=== PATIENT | female | born 1955 | race Caucasian/White ===

== ENCOUNTER → 2017-03-26 | Outpatient (CLI) | payer OTHER ==
[~2017-03-26] MED LIST: ASCO1CAP3 PO; ASPEC81 PO; AUGMENTIN PO; LEVO88TA22 PO; LORA-741 PO; MISCCAP80 PO; SENNTAB23 PO; SIMV20TA5 PO
[2017-03-26 16:46] LABS: BASO % 0.2 %; BASO ABS # 0.01 K/uL (0-0.2); COMPLETE YES; EOS % 3.2 %; HEMATOCRIT 39.8 % (37-47); IG% 0.2 %; LYMPH % 33.9 %; LYMPH ABS # 1.71 K/uL (1.2-3.4); MEAN CELL VOLUME 94.3 fL (80-100); MEAN CORPUSCULAR HEMOGLOBIN 30.3 pg (25-34); MEAN CORPUSCULAR HGB CONC 32.2 g/dl (32-36); MEAN PLATELET VOLUME 9.8 fL (7.4-10.4); MONO % 11.3 %; NEUT % 51.2 %; PLATELET COUNT 246 K/uL (130-400); RED BLOOD COUNT 4.22 M/uL (4.2-5.4); WHITE BLOOD COUNT 5.04 K/uL (4.8-10.8)
[2017-03-26 17:10] LABS: ALT/SGPT 40 U/L (12-78); BLOOD UREA NITROGEN 16 mg/dl (7-18); BUN/CREATININE RATIO 27.1 (10-20); CALCIUM 8.8 mg/dl (8.5-10.1); CARBON DIOXIDE 29 mmol/L (21-32); CHLORIDE 109 mmol/L (98-107); CHOLESTEROL 168 mg/dl (0-200); CREATININE 0.59 mg/dl (0.60-1.20); GLUCOSE 89 mg/dl (70-99); POTASSIUM 4.4 mmol/L (3.5-5.1); SODIUM 142 mmol/L (136-145)
[2017-03-26 17:19] LABS: ALB/GLOB RATIO 1.1 (0.9-2); ALKALINE PHOSPHATASE 89 U/L (45-117); AST/SGOT 21 U/L (15-37); CHOLESTEROL/HDL RATIO 2.8; HDL CHOLESTEROL 61 mg/dl; LDL CHOLESTEROL CALCULATED 89 mg/dl; THYROID STIMULATING HORMONE 0.722 uIu/ml (0.300-4.500); TRIGLYCERIDES 90 mg/dl (0-150); VERY LOW DENSITY LIPOPROT CALC 18 mg/dl
== END | disposition home or self-care (01) ==
LOC: C.LABPBG 11:56
PROVIDERS: ATTEND Neuromusculoskeletal Medicine & OMM
DX: Z00.00 Encounter for general adult medical examination without abnormal findings (principal)

== ENCOUNTER → 2017-07-02 | Outpatient (CLI) | payer OTHER | END | disposition home or self-care (01) | LOC: C.PAPS 15:08 | PROVIDERS: ATTEND Obstetrics & Gynecology | DX: Z12.4 Encounter for screening for malignant neoplasm of cervix (principal) ==

== ENCOUNTER 2017-11-14 08:10 | Emergency (ER) | payer OTHER ==
[~2017-11-14] VITALS: Ht 157.5 cm; Wt 71.0 kg
[2017-11-14 08:21] VITALS: TEMP 36.4; O2SAT 97; Ht 157.5 cm; Wt 71.0 kg
[2017-11-14 09:06] LABS: BASO % 0.3 %; BASO ABS # 0.02 K/uL (0-0.2); EOS % 1.7 %; HEMATOCRIT 40.2 % (37-47); HEMOGLOBIN 13.2 g/dL (12.0-16.0); IG# 0.01 K/uL (0.00-0.02); LYMPH % 34.7 %; LYMPH ABS # 2.06 K/uL (1.2-3.4); MEAN CELL VOLUME 93.9 fL (80-100); MEAN CORPUSCULAR HEMOGLOBIN 30.8 pg (25-34); MEAN CORPUSCULAR HGB CONC 32.8 g/dl (32-36); MEAN PLATELET VOLUME 9.5 fL (7.4-10.4); MONO ABS # 0.71 K/uL (0.11-0.59); NEUT % 51.1 %; NEUT ABS # 3.04 K/uL (1.4-6.5); PLATELET COUNT 203 K/uL (130-400); RED CELL DISTRIBUTION WIDTH CV 12.5 % (11.5-14.5); RED CELL DISTRIBUTION WIDTH SD 42.6 fL (36.4-46.3); WHITE BLOOD COUNT 5.94 K/uL (4.8-10.8)
[2017-11-14 09:11] LABS: PTT PATIENT 26.1 SECONDS (21.0-31.0)
[2017-11-14 09:14] LABS: ALBUMIN 3.8 gm/dl (3.4-5.0); ALT/SGPT 26 U/L (12-78); AST/SGOT 18 U/L (15-37); BLOOD UREA NITROGEN 17 mg/dl (7-18); CALCIUM 8.8 mg/dl (8.5-10.1); CARBON DIOXIDE 28 mmol/L (21-32); CREATININE 0.64 mg/dl (0.60-1.20); GLUCOSE 110 mg/dl (70-99); LIPASE 117 U/L (73-393); POTASSIUM 4.2 mmol/L (3.5-5.1); SODIUM 139 mmol/L (136-145)
[2017-11-14] MEDS ORDERED: APPLTAB PO (09:14)
[2017-11-14] MEDS ORDERED: LEVO88TA PO (09:14)
[2017-11-14] MEDS ORDERED: ASPI81TA21 PO (09:14)
[2017-11-14] MEDS ORDERED: GI COCKTAIL PO STA (09:15)
[2017-11-14 09:19] LABS: ALKALINE PHOSPHATASE 81 U/L (45-117); CKMB 1.6 ng/ml (0.5-3.6); TOTAL PROTEIN 7.7 gm/dl (6.4-8.2)
[2017-11-14] MEDS ORDERED: LIDOCAINE HCL 2% VISC SOLN 20 ML UDC ONE (09:21)
[2017-11-14] MEDS ORDERED: ALUMINUM/MAGNESIUM SUSP 30 ML UDC ONE (09:21)
--- NOTE | 2017-11-14 09:44 | DIAGNOSTIC IMAGING REPORT ---
CHEST ONE VIEW PORTABLE HISTORY: Atypical CHEST PAIN COMPARISON: Chest 01/13/16 FINDINGS: The lungs are clear. Cardiac silhouette is normal in size. No pleural effusions. No pneumothorax. IMPRESSION: No acute process. Electronically signed by: Howie Peacock M.D. 11/14/2017 9:43 AM Dictated Date/Time: 11/14/2017 9:41 AM
[2017-11-14 12:35] VITALS: BP 112/77; PULSE 62; O2SAT 97
--- NOTE | 2017-11-14 14:21 | EMERGENCY ROOM VISIT NOTE ---
History Report prepared by Livia: Arvind Davidson Under the Supervision of: Dr. Tay Saleh M.D. First contact with patient: 08:39 Chief Complaint: CHEST PAIN Stated Complaint: CHEST PAIN,ARM PAIN Nursing Triage Summary: pt reports mid chest pain since 2200 last night. pt reports taking antacids with minimal relief. "i didn't sleep it kept me up all night." pt reports pain radiates into right arm. History of Present Illness The patient is a 62 year old female who presents to the Emergency Room with complaints of burning centralized chest pain that began 10 hours ago. She rates her pain an 8/10 in severity. She has a past medical history of hyperlipidemia, GERD, tuberculosis when she was a child. Her pain is radiating down her right arm to her elbow. She notes that she took some antacids with some mild relief. She has an extensive family history of cardiac disease. She states that recently she has felt some shortness of breath with exertion and is having increased gas production with belching. Pt denies LOC, headache, fevers, chills , diaphoresis, visual changes, neck pain, tearing pain radiating to the back, personal history or family history of aneurysm or pulmonary embolism, uncontrolled hypertension, leg swelling, coagulation abnormalities, prolonged travel, recent surgery or immobilization, nausea, vomiting, abdominal pain, melena, hematochezia, urinary symptoms, numbness, weakness, lymphadenopathy, rash, or other complaints. Source of History: patient Onset: 10 hours ago Position: chest (centralized) Symptom Intensity: 8/10 Quality: burning Timing: constant Note: She is experiencing increased gas production with belching. Her pain is radiating into her right arm to her elbow. Review of Systems See HPI for pertinent positives and negatives. A total of ten systems were reviewed and were otherwise negative. Past Medical & Surgical Medical Problems: (1) Bladder prolapse (2) Gastroesophageal reflux disease (3) Hyperlipidemia (4) Hypothyroidism (5) Hysterectomy (6) left knee sugery (7) Rectocele (8) right knee surgery (9) sinus surgery (10) Tonsillectomy Family History Heart disease Social History Smoking Status: Never Smoker Alcohol Use: none Marital Status: Occupation Status: employed Current/Historical Medications Scheduled Apple Cider Vinegar (Apple Cider Vinegar), 450 MG PO DAILY Ascorbic Acid (Vitamin C), 500 MG PO QPM Aspirin Enteric Coated (Ecotrin Or Generic), 81 MG PO DAILY Levothyroxine Sodium (Synthroid), 88 MCG PO DAILY Probiotic Product (Probiotic), 1 TAB PO QPM Simvastatin (Zocor), 20 MG PO QPM Allergies Coded Allergies: Latex2 -Systemic Allergic Response (Verified Allergy, Severe, RASH, SWELLING OF THROAT, 11/14/17) Hydrocodone (Verified Allergy, Intermediate, ITCHING, 11/14/17) Caffeine (Verified Allergy, Unknown, MILD SOB, 11/14/17) INCLUDES TEAS, CHCOLOATE USUALLY DRINKS 1 CUP TEA A DAY Salicylates (Verified Adverse Reaction, Unknown, gi upset-TAKES DAILY ASPIRIN 81 MG, 11/14/17) Physical Exam Vital Signs Date Time Temp Pulse Resp B/P (MAP) Pulse Ox O2 Delivery O2 Flow Rate FiO2 11/14/17 12:35 62 18 112/77 97 11/14/17 12:29 55 11/14/17 11:07 64 18 116/67 96 Room Air 11/14/17 10:09 76 18 121/69 94 Room Air 11/14/17 08:51 53 18 138/63 96 Room Air 11/14/17 08:21 36.4 57 18 159/79 97 Room Air 11/14/17 08:21 60 11/14/17 08:21 97 Room Air Physical Exam GENERAL: Awake, alert, uncomfortable appearing, in no distress HENT: Normocephalic, atraumatic. Oropharynx unremarkable. EYES: Normal conjunctiva. Sclera non-icteric. NECK: Supple. No nuchal rigidity. FROM. No JVD. RESPIRATORY: Clear to auscultation. CARDIAC: Regular rate, normal rhythm. Extremities warm and well perfused. Pulses equal. ABDOMEN: Soft, non-distended. Mild epigastric tenderness to palpation. No rebound or guarding. No masses. RECTAL: Deferred. MUSCULOSKELETAL: Chest examination reveals no tenderness. The back is symmetrical on inspection without obvious abnormality. There is no CVA tenderness to palpation. No joint edema. LOWER EXTREMITIES: Calves are equal size bilaterally and non-tender. No edema. No discoloration. NEURO: Normal sensorium. No sensory or motor deficits noted. SKIN: No rash or jaundice noted. Medical Decision & Procedures ER Provider Diagnostic Interpretation: Radiology results as stated below per my review and radiologist interpretation: CHEST ONE VIEW PORTABLE HISTORY: Atypical CHEST PAIN COMPARISON: Chest 01/13/16 FINDINGS: The lungs are clear. Cardiac silhouette is normal in size. No pleural effusions. No pneumothorax. IMPRESSION: No acute process. Electronically signed by: Howie Peacock M.D. 11/14/2017 9:43 AM Dictated Date/Time: 11/14/2017 9:41 AM Laboratory Results 11/14/17 08:25 Red Blood Count 4.28, Mean Corpuscular Volume 93.9, Mean Corpuscular Hemoglobin 30.8, Mean Corpuscular Hemoglobin Concent 32.8, Mean Platelet Volume 9.5, Neutrophils (%) (Auto) 51.1, Lymphocytes (%) (Auto) 34.7, Monocytes (%) (Auto) 12.0, Eosinophils (%) (Auto) 1.7, Basophils (%) (Auto) 0.3, Neutrophils # (Auto ) 3.04, Lymphocytes # (Auto) 2.06, Monocytes # (Auto) 0.71, Eosinophils # (Auto ) 0.10, Basophils # (Auto) 0.02 11/14/17 08:25 Test 11/14/17 08:25 11/14/17 10:18 White Blood Count 5.94 K/uL (4.8-10.8) Red Blood Count 4.28 M/uL (4.2-5.4) Hemoglobin 13.2 g/dL (12.0-16.0) Hematocrit 40.2 % (37-47) Mean Corpuscular Volume 93.9 fL (80-100) Mean Corpuscular Hemoglobin 30.8 pg (25-34) Mean Corpuscular Hemoglobin Concent 32.8 g/dl (32-36) Platelet Count 203 K/uL (130-400) Mean Platelet Volume 9.5 fL (7.4-10.4) Neutrophils (%) (Auto) 51.1 % Lymphocytes (%) (Auto) 34.7 % Monocytes (%) (Auto) 12.0 % Eosinophils (%) (Auto) 1.7 % Basophils (%) (Auto) 0.3 % Neutrophils # (Auto) 3.04 K/uL (1.4-6.5) Lymphocytes # (Auto) 2.06 K/uL (1.2-3.4) Monocytes # (Auto) 0.71 K/uL (0.11-0.59) Eosinophils # (Auto) 0.10 K/uL (0-0.5) Basophils # (Auto) 0.02 K/uL (0-0.2) RDW Standard Deviation 42.6 fL (36.4-46.3) RDW Coefficient of Variation 12.5 % (11.5-14.5) Immature Granulocyte % (Auto) 0.2 % Immature Granulocyte # (Auto) 0.01 K/uL (0.00-0.02) Prothrombin Time 10.6 SECONDS (9.0-12.0) Prothromb Time International Ratio 1.0 (0.9-1.1) Activated Partial Thromboplast Time 26.1 SECONDS (21.0-31.0) Partial Thromboplastin Ratio 1.0 D-Dimer 260 ug/L FEU (0-500) Anion Gap 5.0 mmol/L (3-11) Est Creatinine Clear Calc Drug Dose 85.2 ml/min Estimated GFR () 111.6 Estimated GFR (Non- 96.3 BUN/Creatinine Ratio 26.6 (10-20) Calcium Level 8.8 mg/dl (8.5-10.1) Total Bilirubin 0.4 mg/dl (0.2-1) Direct Bilirubin 0.1 mg/dl (0-0.2) Aspartate Amino Transf (AST/SGOT) 18 U/L (15-37) Alanine Aminotransferase (ALT/SGPT) 26 U/L (12-78) Alkaline Phosphatase 81 U/L (45-117) Total Creatine Kinase 95 U/L (26-192) Creatine Kinase MB 1.6 ng/ml (0.5-3.6) Creatine Kinase MB Ratio 1.7 (0-3.0) Troponin I < 0.015 ng/ml (0-0.045) Total Protein 7.7 gm/dl (6.4-8.2) Albumin 3.8 gm/dl (3.4-5.0) Lipase 117 U/L (73-393) Bedside Troponin I < 0.030 ng/ml (0-0.045) Laboratory results reviewed by me Medications Administered Medications (Trade) Dose Ordered Sig/Karlo Route Start Time Stop Time Status Last Admin Dose Admin Al Hydroxide/Mg Hydroxide (Maalox Susp) 30 ml [employer] ONCE .ROUTE 11/14/17 09:21 11/14/17 09:22 DC 11/14/17 09:23 30 ML Lidocaine HCl (Viscous Lidocaine 2% Soln) 20 ml STK-MED ONCE .ROUTE 11/14/17 09:21 11/14/17 09:22 DC 11/14/17 09:23 10 ML ECG Indication: chest pain Rate (beats per minute): 56 Rhythm: sinus bradycardia Findings: RBBB (incomplete), no acute ischemic change, no ectopy Change: Repeat ECG shows sinus bradycardia at 50 bpm. No evidence of ischemia or ectopy. No significant change from the first. ED Course 0839: The patient was evaluated in room A4. A complete history and physical exam was performed. 15: Ordered GI Cocktail 24 ml PO 0959: The patient has had resolution of her chest discomfort with the GI cocktail. 1230: I reevaluated the patient. Discussed results and discharge instructions: She verbalized understanding and agreement. The patient is ready for discharge. Medical Decision Triage Nursing notes reviewed. The patient's presentation and history were concerning for chest pain. Etiologies such as cardiac ischemia, gastrointestinal, aortic dissection, pulmonary embolism, pneumonia, pneumothorax, musculoskeletal, infections, as well as others were entertained. The patient was evaluated. She described a lot of belching and heartburn-like symptoms. She was previously on Prilosec but noted that this made her nauseated. she was given a GI cocktail. Blood work and ECG were performed. These were unremarkable. On reassessment she had resolution of pain after the GI cocktail. She felt much better. She was observed. Repeat troponin and ECG were negative for acute change. Given the situation I discussed conservative management with close outpatient follow-up. At the time of the second troponin she had more than 14 hours from the onset of her symptoms. If she worsens in any way she will be back. I did discuss trying an H2 cynthia as well as when necessary Mylanta/Maalox. I gave my usual and customary discussion regarding this issue. By the evaluation outlined above other emergent etiologies such as those listed in the differential, as well as others, were deemed relatively unlikely. The patient was educated about the findings as listed above. All questions were answered and the patient was pleased with the treatment. Return instructions were outlined and the patient was discharged in stable condition. The patient was referred to her pcp for follow-up for a recheck of the current condition. Medication Reconcilliation Current Medication List: was personally reviewed by me Blood Pressure Screening Patient's blood pressure: Normal blood pressure Blood pressure disposition: Did not require urgent referral Impression Primary Impression: Substernal chest pain Scribe Attestation The scribe's documentation has been prepared under my direction and personally reviewed by me in its entirety. I confirm that the note above accurately reflects all work, treatment, procedures, and medical decision making performed by me. Departure Information Dispostion Home / Self-Care Referrals Dragan Marrufo D.O. (PCP) Forms Call Back Authorization, HOME CARE DOCUMENTATION FORM, IMPORTANT VISIT INFORMATION Patient Instructions My [facility] Additional Instructions CHEST PAIN INSTRUCTIONS: Maalox or Mylanta as needed for any reflux. Follow the instructions on the bottle. Zantac 150 mg twice daily. This is available [id number]. Take this until directed otherwise by your primary physician. Acetaminophen(Tylenol) may be used for fever or pain. Use 1000mg every six hours as needed. Avoid using more than 4000mg in a 24 hour period. Rest and drink plenty of fluids as tolerated. Continue current medications. Baby aspirin, 81 mg daily until directed otherwise by primary physician. Avoid strenuous activities and anything that worsens your pain. Resume normal activities once your symptoms resolve. Return to the ER immediately for worsening or persistent chest pain, abdominal pain, vomiting, fevers, chest pains, difficulty breathing, worsening of your condition, or as needed. Follow up with your primary physician tomorrow to schedule a recheck this week.
== END 2017-11-14 12:36 | disposition home or self-care (01) ==
LOC: C.EDB 08:12 → C.EDA 12:36
DX: R07.2 Precordial pain (principal); Z86.11 Personal history of tuberculosis; E78.5 Hyperlipidemia, unspecified; E03.9 Hypothyroidism, unspecified; Z90.710 Acquired absence of both cervix and uterus; Z90.89 Acquired absence of other organs; Z79.82 Long term (current) use of aspirin; Z79.899 Other long term (current) drug therapy

== ENCOUNTER → 2018-03-01 | Outpatient (CLI) | payer OTHER ==
[~2018-03-01] MED LIST changes: +APPLTAB PO; -ASPEC81 PO; +ASPI-319 PO; -AUGMENTIN PO; +LEVO88TA PO; -LEVO88TA22 PO; -LORA-741 PO; -SENNTAB23 PO
[2018-03-01 12:55] LABS: BASO % 0.2 %; BASO ABS # 0.01 K/uL (0-0.2); EOS % 1.9 %; HEMATOCRIT 39.2 % (37-47); HEMOGLOBIN 12.9 g/dL (12.0-16.0); IG# 0.01 K/uL (0.00-0.02); LYMPH % 34.9 %; LYMPH ABS # 1.82 K/uL (1.2-3.4); MEAN CELL VOLUME 93.1 fL (80-100); MEAN CORPUSCULAR HEMOGLOBIN 30.6 pg (25-34); MEAN CORPUSCULAR HGB CONC 32.9 g/dl (32-36); MEAN PLATELET VOLUME 9.5 fL (7.4-10.4); MONO % 10.7 %; MONO ABS # 0.56 K/uL (0.11-0.59); NEUT % 52.1 %; NEUT ABS # 2.72 K/uL (1.4-6.5); PLATELET COUNT 227 K/uL (130-400); RED CELL DISTRIBUTION WIDTH CV 12.6 % (11.5-14.5); RED CELL DISTRIBUTION WIDTH SD 42.6 fL (36.4-46.3); WHITE BLOOD COUNT 5.22 K/uL (4.8-10.8)
[2018-03-01 13:26] LABS: ALBUMIN 3.5 gm/dl (3.4-5.0); ALT/SGPT 38 U/L (12-78); AST/SGOT 20 U/L (15-37); BLOOD UREA NITROGEN 14 mg/dl (7-18); CALCIUM 8.6 mg/dl (8.5-10.1); CARBON DIOXIDE 30 mmol/L (21-32); CREATININE 0.76 mg/dl (0.60-1.20); GLUCOSE 95 mg/dl (70-99); POTASSIUM 4.2 mmol/L (3.5-5.1); SODIUM 141 mmol/L (136-145)
[2018-03-01 13:37] LABS: ALKALINE PHOSPHATASE 94 U/L (45-117); CHOLESTEROL 148 mg/dl (0-200); LDL CHOLESTEROL CALCULATED 71 mg/dl; TOTAL PROTEIN 7.4 gm/dl (6.4-8.2)
== END | disposition home or self-care (01) ==
LOC: C.LABPBG 08:55
PROVIDERS: ATTEND Neuromusculoskeletal Medicine & OMM
DX: Z00.00 Encounter for general adult medical examination without abnormal findings (principal); E03.9 Hypothyroidism, unspecified; E78.5 Hyperlipidemia, unspecified